=== PATIENT | male | born 1965 | race Caucasian/White ===

== ENCOUNTER 2018-01-18 04:43 | Emergency (ER) | payer SELFPAY ==
[~2018-01-18] VITALS: Ht 172.7 cm; Wt 90.7 kg
--- OUTSIDE RECORDS SUMMARY | 2018-01-18 04:47 | XMS REPORT | Clinical Summary ---
Author Author [facility] [facility] [employer] Address Unknown Phone Unavailable Care Team Providers Care Radiology Services Manager Name Role Phone Sangeeta Cuellar MD PCP Allergies Comments Active Allergy Reactions Severity Noted Date STATES HE EXPERIENCED LEFT SIDE STIFFNESS AFTER HE RECEIVED THE DOSE AND WENT AWAY AFTER THEY GAVE HIM BENADRYL. Prochlorperazine 02/03/2017 Medications End Date Status Medication Sig Dispensed Refills Start Date Active HYDROcodone-acetaminophen Take 1 tablet 0 (NORCO) 10-325 mg per by mouth tablet every 6 (six) hours as needed for moderate pain. Active tamsulosin (FLOMAX) 0.4 Take 0.4 mg 0 mg capsule,extended by mouth release 24hr daily. Active Problems Problem Noted Date Ankle mass, left 02/04/2017 Ankle pain 02/04/2017 Encounters Care Team Description Date Type Specialty Elier Mccrary Jr., MD LEFT ACHILLES TENDON FOREIGN BODY REMOVAL 02/04/2017 Surgery General Surgery Angel Horton MD 02/04/2017 Anesthesia General Surgery Event Elier Mccrary Jr., MD Preoperative testing 02/04/2017 Hospital General Surgery Encounter Elier Mccrary Jr., MD 02/03/2017 Hospital Radiology Encounter Elier Mccrary Jr., MD Preoperative testing (Primary Dx) 02/03/2017 Pre-Admit Pre-Admission Testing Testing Appointment after 01/17/2017 Family History Medical History Relation Name Comments Heart disease Father No Known Problems Mother Relation Name Status Comments Father AT 45 DUE TO HEART ATTACK Mother Alive Social History Date Tobacco Use Types Packs/Day Years Used Current Some Day Smoker Cigarettes 0.5 20 Smokeless Tobacco: Current User Tobacco Cessation: Ready to Quit: Yes; Counseling Given: Yes Comments: STATES 2 PKS/WEEK. Alcohol Use Drinks/Week oz/Week Comments No Sex Assigned at Date Recorded Not on file Industry Job Start Date Occupation Not on file Not on file Not on file Travel End Travel History Travel Start No recent travel history available. Last Filed Vital Signs Time Taken Vital Sign Reading 02/04/2017 9:26 AM CLINICAL SUPPORT MANAGER Blood Pressure 128/85 02/04/2017 9:26 AM CLINICAL SUPPORT MANAGER Pulse 60 02/04/2017 9:10 AM CLINICAL SUPPORT MANAGER Temperature 36.7 C (98 F) 02/04/2017 9:26 AM CLINICAL SUPPORT MANAGER Respiratory Rate 16 02/04/2017 9:26 AM CLINICAL SUPPORT MANAGER Oxygen Saturation 96% - Inhaled Oxygen - Concentration 02/04/2017 6:55 AM CLINICAL SUPPORT MANAGER Weight 92.7 kg (204 lb 4.8 oz) 02/04/2017 6:55 AM CLINICAL SUPPORT MANAGER Height 172.7 cm (5' 8") 02/04/2017 6:55 AM CLINICAL SUPPORT MANAGER Body Mass Index 31.06 Plan of Treatment Health Maintenance Due Date Last Done Comments MMR VACCINES (1 of - 07/18/1967 Standard series) VARICELLA VACCINES (1 of 07/18/1979 2 - 2-dose adolescent series) COLON CANCER SCREENING 2016 SHINGRIX VACCINE (1 of 2) 2016 INFLUENZA VACCINE 09/14/2017 HEPATITIS B VACCINES Aged Out No longer eligible based on patient's age to complete this topic IPV VACCINES Aged Out No longer eligible based on patient's age to complete this topic MENINGOCOCCAL VACCINE Aged Out No longer eligible based on patient's age to complete this topic Procedures Comments Procedure Name Priority Date/Time Associated Diagnosis SURGICAL PATHOLOGY Routine 02/04/2017 REQUEST 10:15 AM CLINICAL SUPPORT MANAGER GA AN ELECTIVE Routine 02/04/2017 SUPRAGLOTTIC AIRWAY 8:10 AM CLINICAL SUPPORT MANAGER Procedure Note - Angel Horton MD - 02/04/2017 8:10 AM CLINICAL SUPPORT MANAGER Airway Performed by: ANGEL HORTON Authorized by: ANGEL HORTON Location: OR Urgency: Elective Difficult Airway: No Anesthesio logist: ANGEL HORTON Performed by: anesthesio logist Preoxygena ioana with 100% O2: Yes C-spine Precaution s Maintained Throughout : Yes Mask Ventilatio n: Assisted mask Final Airway Type: Supraglott ic airway Final LMA: Classic LMA Size: 5 Number of Attempts at Approach: 1 REPAIR, TENDON, ACHILLES 02/04/2017 Ankle mass 8:00 AM CLINICAL SUPPORT MANAGER ECG 12-LEAD Routine 02/03/2017 Preoperative testing 8:49 AM CLINICAL SUPPORT MANAGER XR CHEST 2 VW Routine 02/03/2017 Preoperative testing 8:09 AM CLINICAL SUPPORT MANAGER ZZESTIMATED GFR Routine 02/03/2017 7:24 AM CLINICAL SUPPORT MANAGER PARTIAL THROMBOPLASTIN Routine 02/03/2017 Preoperative testing TIME (PTT) 7:24 AM CLINICAL SUPPORT MANAGER PROTHROMBIN TIME WITH INR Routine 02/03/2017 Preoperative testing 7:24 AM CLINICAL SUPPORT MANAGER COMPREHENSIVE METABOLIC Routine 02/03/2017 Preoperative testing PANEL 7:24 AM CLINICAL SUPPORT MANAGER HC COMPLETE BLD COUNT Routine 02/03/2017 Preoperative testing W/AUTO DIFF 7:24 AM CLINICAL SUPPORT MANAGER after 01/17/2017 Results * Surgical pathology request (02/04/2017 10:15 AM CLINICAL SUPPORT MANAGER) [facility] DEPARTMENT OF PATHOLOGY AND GENOMIC MEDICINE Surgical pathology report See link below for PDF Lab [facility] DEPARTMENT OF Report PATHOLOGY AND GENOMIC MEDICINE Result status This is Final Report to [facility] DEPARTMENT OF [id number] PATHOLOGY AND GENOMIC MEDICINE Performing Organization Address City/[facility] Phone Number [facility] DEPARTMENT [facility] [place] [id number] PATHOLOGY AND GENOMIC MEDICINE * ECG 12 lead (02/03/2017 8:49 AM CLINICAL SUPPORT MANAGER) Ventricular rate 59 [facility] Atrial rate 59 [facility] GA interval 154 [facility] QRSD interval 84 [facility] QT interval 388 [facility] QTC interval 384 [facility] P axis 1 56 [facility] QRS axis 1 57 [facility] T wave axis 52 [facility] EKG impression Sinus bradycardia-Otherwise [facility] MUSE normal ECG-No previous ECGs available- Performing Organization Address City/[facility] Phone Number [facility] [address] [place] [address] * XR Chest 2 Vw (02/03/2017 8:09 AM CLINICAL SUPPORT MANAGER) Narrative Performed At EXAMINATION:XR CHEST 2 VW [facility] CLINICAL HISTORY:Z01.818 Encounter for other preprocedural examination, PREOP COMPARISON:February 03, 2017 FINDINGS: Heart size is within normal limits. The mediastinum is unremarkable.There are densities projecting in the right midlung at the level of the anterior third fourth and fifth ribs which may be related to pleural thickening the etiology is not entirely certain. Without old films there etiology is not definitely confirmed. Degenerative changes of the thoracic spine are present. IMPRESSION: Areas of possible pleural plaque at the level of the third fourth and fifth anterior right ribs. Comparison with previous films or CT is suggested for further evaluation. [id number] Procedure Note Interface, Radiology Results Incoming - 02/03/2017 8:59 AM CLINICAL SUPPORT MANAGER EXAMINATION: XR CHEST 2 VW CLINICAL HISTORY: Z01.818 Encounter for other preprocedural examination, PREOP COMPARISON: February 03, 2017 FINDINGS: Heart size is within normal limits. The mediastinum is unremarkable. There are densities projecting in the right midlung at the level of the anterior third fourth and fifth ribs which may be related to pleural thickening the etiology is not entirely certain. Without old films there etiology is not definitely confirmed. Degenerative changes of the thoracic spine are present. IMPRESSION: Areas of possible pleural plaque at the level of the third fourth and fifth anterior right ribs. Comparison with previous films or CT is suggested for further evaluation. [id number] Performing Organization Address City/State/Zipcode Phone Number [facility] [address] [place] [address] * Estimated GFR (02/03/2017 7:24 AM CLINICAL SUPPORT MANAGER) GFR Non Af Amer >90 mL/min/1.[address] [facility] DEPARTMENT OF PATHOLOGY AND GENOMIC MEDICINE GFR Af Amer >90 mL/min/1.[address] [facility] DEPARTMENT OF Comment: PATHOLOGY AND Chronic kidney disease: <60 GENOMIC MEDICINE mL/min/1.73m2 Kidney failure: <15 mL/min/1.73m2 The estimated GFR is calculated from the IDMS-traceable Modification of Diet in Renal Disease Equation. The accuracy of the calculation is poor when the creatinine is normal. Calculated values >90 mL/min/1.73m2 are not reported. This equation has not been validated in children (<18 years), women, the elderly (>70 years), or ethnic groups other than Caucasians and Americans. Specimen Plasma specimen Performing Organization Address [facility] Phone Number [address] [place] [address] PATHOLOGY AND GENOMIC MEDICINE * Partial thromboplastin time, activated (02/03/2017 7:24 AM CLINICAL SUPPORT MANAGER) PTT 32.0 23.0 - 36.[address] [facility] DEPARTMENT OF Comment: PATHOLOGY AND PTT therapeutic range for GENOMIC MEDICINE unfractionated heparin is 61.0-112.0 seconds which corresponds to Anti-Xa 0.3-0.7 U/ml. Specimen Blood Performing Organization Address [facility] Phone Number [address] [place] [address] PATHOLOGY AND GENOMIC [facility] * Prothrombin time with INR (02/03/2017 7:24 AM CLINICAL SUPPORT MANAGER) Prothrombin time 13.8 12.0 - 15.[address] [facility] DEPARTMENT OF PATHOLOGY AND GENOMIC MEDICINE INR 1.0 [facility] DEPARTMENT OF Comment: PATHOLOGY AND The International Normalized [facility] MEDICINE Ratio (INR) is a therapeutic monitoring tool for patients who are stable on oral anticoagulant therapy. An INR of 2.0-3.0 is suggested for deep vein thrombosis/pulmonary embolism. Specimen Blood Performing Organization Address [facility] Phone Number [address] [place] [address] PATHOLOGY AND [facility] MEDICINE * CBC with platelet and differential (02/03/2017 7:24 AM CLINICAL SUPPORT MANAGER) WBC 5.12 4.50 - 11.00 k/uL [facility] DEPARTMENT OF PATHOLOGY AND GENOMIC MEDICINE RBC 4.99 4.40 - 6.00 m/uL [facility] DEPARTMENT OF PATHOLOGY AND GENOMIC MEDICINE HGB 14.7 14.0 - 18.0 g/dL [facility] DEPARTMENT OF PATHOLOGY AND GENOMIC MEDICINE HCT 44.4 41.0 - 51.0 % [facility] DEPARTMENT OF PATHOLOGY AND GENOMIC MEDICINE MCV 89.0 82.0 - 100.[address] [facility] DEPARTMENT OF PATHOLOGY AND GENOMIC MEDICINE MCH 29.5 27.0 - 34.[address] [facility] DEPARTMENT OF PATHOLOGY AND GENOMIC MEDICINE MCHC 33.1 31.0 - 37.0 g/dL [facility] DEPARTMENT OF PATHOLOGY AND GENOMIC MEDICINE RDW - SD 40.5 37.0 - 55.[address] [facility] DEPARTMENT OF PATHOLOGY AND GENOMIC MEDICINE MPV 11.6 8.8 - 13.[address] [facility] DEPARTMENT OF PATHOLOGY AND GENOMIC MEDICINE Platelet count 223 150 - 400 k/uL [facility] DEPARTMENT OF PATHOLOGY AND GENOMIC MEDICINE Nucleated RBC 0.00 /[address] [facility] DEPARTMENT OF PATHOLOGY AND GENOMIC MEDICINE Neutrophils 48.6 39.0 - 69.0 % [facility] DEPARTMENT OF PATHOLOGY AND GENOMIC MEDICINE Lymphocytes 36.9 25.0 - 45.0 % [facility] DEPARTMENT OF PATHOLOGY AND GENOMIC MEDICINE Monocytes 8.8 0.0 - 10.0 % [facility] DEPARTMENT OF PATHOLOGY AND GENOMIC MEDICINE Eosinophils 5.3 (H) 0.0 - 5.0 % [facility] DEPARTMENT OF PATHOLOGY AND GENOMIC MEDICINE Basophils 0.2 0.0 - 1.0 % [facility] DEPARTMENT OF PATHOLOGY AND GENOMIC MEDICINE Immature granulocytes 0.2Comment: "Immature 0.0 - 1.0 % [facility] DEPARTMENT OF granulocytes" (promyelocytes, PATHOLOGY AND myelocytes, metamyelocytes) [facility] Specimen Blood Performing Organization Address City/State/Zipcode Phone Number [facility] DEPARTMENT [address] [place] [address] PATHOLOGY AND [facility] MEDICINE * Comprehensive metabolic panel (02/03/2017 7:24 AM CLINICAL SUPPORT MANAGER) Sodium 137 135 - 148 mEq/L [facility] DEPARTMENT OF PATHOLOGY AND GENOMIC MEDICINE Potassium 4.2 3.5 - 5.0 mEq/L [facility] DEPARTMENT OF PATHOLOGY AND GENOMIC MEDICINE Chloride 100 98 - 112 mEq/L [facility] DEPARTMENT OF PATHOLOGY AND GENOMIC MEDICINE CO2 27 24 - 31 mEq/L [facility] DEPARTMENT OF PATHOLOGY AND GENOMIC MEDICINE Anion gap 10 7 - 15 mEq/L [facility] DEPARTMENT OF Comment: PATHOLOGY AND Starting from May [facility] , anion gap calculation no longer incorporates potassium. Please note the change. BUN 13 6 - 20 mg/dL [facility] DEPARTMENT OF PATHOLOGY AND GENOMIC MEDICINE Creatinine 0.8 0.7 - 1.2 mg/dL [facility] DEPARTMENT OF PATHOLOGY AND GENOMIC MEDICINE Glucose 82 65 - 99 mg/dL [facility] DEPARTMENT OF PATHOLOGY AND GENOMIC MEDICINE Calcium 9.5 8.3 - 10.2 mg/dL [facility] DEPARTMENT OF PATHOLOGY AND GENOMIC MEDICINE Protein 7.7 6.3 - 8.3 g/dL [facility] DEPARTMENT OF Comment: PATHOLOGY AND GENOMIC MEDICINE 4.6-7.0 g/dL 1 week 4.4-7.6 g/dL 7 months-1year 5.1-7.3 g/dL 1-2 years5.6-7 .5 g/dL >3 years6.0-8 .0 g/dL 18-150 6.3-8.3 g/dL Albumin 4.0 3.5 - 5.0 g/dL [facility] DEPARTMENT OF PATHOLOGY AND GENOMIC MEDICINE A/G ratio 1.1 0.7 - 3.8 [facility] DEPARTMENT OF PATHOLOGY AND GENOMIC MEDICINE Alkaline phosphatase 85 40 - 129 U/L [facility] DEPARTMENT OF PATHOLOGY AND GENOMIC MEDICINE AST 30 10 - 50 U/L [facility] DEPARTMENT OF PATHOLOGY AND GENOMIC MEDICINE ALT 35 5 - 50 U/L [facility] OF PATHOLOGY AND GENOMIC MEDICINE Total bilirubin 0.2 0.0 - 1.2 mg/dL [facility] DEPARTMENT OF PATHOLOGY AND GENOMIC MEDICINE Specimen Plasma specimen Performing Organization Address City/State/Zipcode Phone Number [facility] [place] [address] [place] [address] PATHOLOGY AND GENOMIC MEDICINE after 01/17/2017 Insurance Payer Benefit Subscriber ID Type Phone Address Plan / Group BCBS BCBS xxxxxxxxxxxx PPO CHOICE PPO/JOSSELIN ALFARO PPO Advance Directives Patient has advance care planning documents on file. For more information, bertin newsome contact: Edmund Otero [address] [place] [address]
[2018-01-18] MEDS ORDERED: ASPIRIN 81 MG CHEW TAB PO ONE (05:45)
== END 2018-01-18 06:00 | disposition left against medical advice (07) ==
LOC: ER 04:43
DX: R07.89 Other chest pain (principal); R06.02 Shortness of breath; F41.9 Anxiety disorder, unspecified; F17.210 Nicotine dependence, cigarettes, uncomplicated
CPT/HCPCS: 93005; 99283